=== PATIENT | female | born 1945 | race Caucasian/White ===

== ENCOUNTER 2022-08-14 09:44 | Outpatient (CLI) | payer MEDICARE, BC | END 2022-08-14 09:45 | disposition critical access hospital (66) | LOC: EMS 09:44 | DX: S99.911A Unspecified injury of right ankle, initial encounter (principal); X58.XXXA Exposure to other specified factors, initial encounter | CPT/HCPCS: A0425; A0429 ==

== ENCOUNTER 2022-08-14 09:48 | Emergency (ER) | payer MEDICARE, BC ==
[2022-08-14 10:01] VITALS: BP 124/85
--- NOTE | 2022-08-14 10:02 | ED Physician Documentation ---
PD HPI LOWER EXT INJURY - Stated complaint Stated Complaint: R ANKLE PX - Chief complaint Chief Complaint: Trauma Ext - History obtained from History obtained from: Patient - History of Present Illness PD HPI LOW EXT INJURY LOCATION: Right, Ankle Type of injury: Fall (she states she had been drinking several drinks and felt off balance as got up from bed, twisted ankle and fell, with pain in ankle. denies head injury. She states poor memory of fall due to alcohol, but does not feel that she hit head.) Timing - onset: Last night Timing - details: Abrupt onset, Still present (unable to walk on ankle still today. had crawled to bed last night.) Improved by: Rest Worsened by: Moving, Palpating Associated symptoms: Swelling. No: Weakness, Numbness Contributing factors: No: Anticoagulated Similar symptoms before: Has not had sx before Recently seen: Not recently seen Review of Systems Constitutional: denies: Fever Nose: denies: Rhinorrhea / runny nose, Congestion Throat: denies: Sore throat Cardiac: denies: Chest pain / pressure Respiratory: denies: Cough GI: denies: Abdominal Pain Neurologic: denies: Focal weakness, Numbness, Altered mental status, Headache, Head injury PD PAST MEDICAL HISTORY - Past Medical History Cardiovascular: None Musculoskeletal: None - Present Medications Home Medications: Ambulatory Orders Medication Instructions Recorded Confirmed Ascorbic Acid [Vitamin C] 1,000 mg PO DAILY 08/14/22 08/14/22 Entecavir 0.5 mg PO DAILY 08/14/22 08/14/22 Letrozole 2.5 mg PO DAILY 08/14/22 08/14/22 Losartan [Cozaar] 100 mg PO DAILY 08/14/22 08/14/22 Magnesium Oxide [Magnesium] 400 mg PO DAILY 08/14/22 08/14/22 Milk Thistle Sd Ext/Blessed Th 1 each PO DAILY 08/14/22 08/14/22 [Milk Thistle 175-120 mg Cap] Oxycodone HCl/Acetaminophen 1 each PO Q6H PRN #20 tablet 08/14/22 [Percocet 5-325 mg Tablet] Spironolactone [Aldactone] 25 mg PO DAILY PM 08/14/22 08/14/22 Vitamin B Complex 1 each PO DAILY 08/14/22 08/14/22 Zinc Gluconate [Zinc] 50 mg PO DAILY 08/14/22 08/14/22 - Allergies Allergies/Adverse Reactions: Allergies Allergy/AdvReac Type Severity Reaction Status Date / Time No Known Drug Allergies Allergy Verified 08/14/22 10:01 - Living Situation Living Situation: reports: Alone (she is visiting daughter here and will be returning Aug 29 (so over 2 weeks).) PD ED PE NORMAL - Vitals Vital signs reviewed: Yes - General General: Alert and oriented X 3, No acute distress, Well developed/nourished - HEENT HEENT: Atraumatic - Neck Neck: Supple, no meningeal sign, No bony TTP - Derm Derm: Normal color, Warm and dry - Extremities Extremities: Other (right lateral prox fibular area slightly tender. Main tender at ankle both lateral and medial. no gross deformity but does have swelling. achillles firm and intact. ) - Neuro Neuro: Alert and oriented X 3, No motor deficit, No sensory deficit, Normal speech Results - Vitals Vitals: Vital Signs - 24 hr 08/14/22 09:59 Temperature 36.7 C Heart Rate 125 H Respiratory 18 Rate Blood Pressure 124/85 H O2 Saturation 98 Oxygen O2 Source Room air - Rads (name of study) right ankle Radiology: Prelim report reviewed (bimalleolar fracture without dislocation. ), See rad report Procedures - Splint (location) - Minor right ankle Splint applied by: Tech Type of splint: Other (boot orthosis) Other: Patient tolerated well, No complications, Neurovascular intact, Crutches provided (though she felt unlikely to be able to do crutches due to poor arm strength. Suggested knee scooter and they will look for one at pharmacy or [facility].) PD Medical Decision Making - ED course Complexity details: reviewed results, considered differential, d/w patient Departure - Departure Disposition: 01 Home, Self Care Clinical Impression: Fall from slip, trip, or stumble Qualifiers: Encounter type: initial encounter Qualified Code(s): W01.0XXA - Fall on same level from slipping, tripping and stumbling without subsequent striking against object, initial encounter Bimalleolar ankle fracture Qualifiers: Encounter type: initial encounter Fracture type: closed Laterality: right Qualified Code(s): S82.841A - Displaced bimalleolar fracture of right lower leg, initial encounter for closed fracture Condition: Stable Record reviewed to determine appropriate education?: Yes Instructions: ED Fx Ankle General Follow-Up: Orthopedic Care [Provider Group] Prescriptions: Oxycodone HCl/Acetaminophen [Percocet 5-325 mg Tablet] 1 each PO Q6H PRN #20 tablet PRN Reason: pain Comments: You have fractures of both sides of the ankle (bimalleolar fracture). The medial or inside part is nondisplaced. This might be able to be treated nonoperatively. Use the cast boot with knee scooter and nonweightbearing initially. Light touch for balance as needed for transfers etc. Ice elevate and rest the ankle often to reduce swelling. Anti-inflammatory such as ibuprofen or naproxen 2-3 times daily with food for the next week. Add Tylenol or Percocet every 6 hours if needed for further pains. Since you are in town through August 29, you may benefit from a orthopedic follow-up visit next week to reevaluate and make sure the fracture staying in position and discuss whether it might need surgery or not. The surgery could still be with your orthopedist back in [place]. However interval evaluation is good rather than waiting the 2 to 3 weeks to see your provider at home. I sent your prescription to the [facility] pharmacy here in [place]. Knee scooters may be available through some of the pharmacy places or of on loan through the [facility]. I am prescribing a short course of narcotic pain medication for you. These are potentially dangerous and addictive medications that should be used carefully. These medications may constipate you. Take an [id number] stool softener such as docusate twice daily with plenty of water while taking these medications. If you go 24 hours without a bowel movement, take [id number] MiraLAX, per package instructions. Do not drink or drive while taking these medications. If you received narcotic or sedating medications while in the emergency department do not drive for 24 hours. Store this medication in a safe, secure p lace and out of reach of children. It is a violation of federal law to give or sell this medication to another person or to use in a manner other than prescribed. The ED will not refill narcotic prescriptions, including prescriptions lost or stolen. You can dispose of unwanted medications at the [facility] office or at several pharmacies such as [facility]. Discharge Date/Time: 08/14/22 12:30
--- NOTE | 2022-08-14 10:44 | XRAY Report ---
PROCEDURE: Ankle 3 View RT INDICATIONS: fall/twist last night TECHNIQUE: 3 views of the ankle were acquired. COMPARISON: None FINDINGS: Bones: Slightly comminuted oblique fracture through distal fibular shaft/lateral malleolus is seen wi th minimal anterior and lateral displacement at fracture site. Radiolucency is also seen in medial ma lleolus which may indicate a nondisplaced medial malleolus fracture suggest clinical correlation.. A nkle mortise is normally aligned. No suspicious bony lesions. Soft tissues: Diffuse ankle soft tissue swelling is seen. No tibiotalar joint effusion. Achilles te ndon appears normal. IMPRESSION: Slightly comminuted and minimally displaced oblique fracture through distal fibular shaf t/lateral malleolus. Questionable nondisplaced medial malleolus fracture suggest clinical correlation . Ankle soft tissue swelling. Reviewed by: Zach Romero MD on 08/14/2022 10:42 AM PST Approved by: Zach Romero MD on 08/14/2022 10:42 AM PST Station ID: [id number]
--- NOTE | 2022-08-14 10:46 | XRAY Report ---
PROCEDURE: Knee 2 View RT INDICATIONS: fall/twist last night TECHNIQUE: 2 views of the right knee(s) were acquired. COMPARISON: None. FINDINGS: Bones: No fractures or dislocations. 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 No suspicious bony lesions. Soft tissues: Moderate suprapatellar joint effusion is seen. Chondrocalcinosis in medial and lateral femoral tibial compartments is noted.. IMPRESSION: Mild tricompartmental osteoarthritis and moderate suprapatellar joint effusion. No acute fracture or dislocation. Chondrocalcinosis as above. Reviewed by: Zach Romero MD on 08/14/2022 10:45 AM PST Approved by: Zach Romero MD on 08/14/2022 10:45 AM PST Station ID: [id number]
[2022-08-14] MEDS: NAPROXEN 250 MG TABLET PO STA ×2 (12:30→12:33)
[2022-08-14] MEDS: oxyCODONE 5 MG TABLET PO STA ×2 (12:31→12:33)
== END 2022-08-14 12:30 | disposition home or self-care (01) ==
LOC: EDUNIT# → ED 09:48
DX: S82.841A Displaced bimalleolar fracture of right lower leg, initial encounter for closed fracture (principal); X50.1XXA Overexertion from prolonged static or awkward postures, initial encounter; Y93.89 Activity, other specified; Y92.003 Bedroom of unspecified non-institutional (private) residence as the place of occurrence of the external cause
CPT/HCPCS: 99283